=== PATIENT | male | born 1990 | race Hispanic/Latino ===

== ENCOUNTER 2018-10-29 09:29 | Emergency (ER) | payer OTHER, SELFPAY ==
[2018-10-29 09:30] VITALS: BP 132/86; PULSE 64; RESP 20; TEMP 36.6; O2SAT 99
--- NOTE | 2018-10-29 09:52 | ED.UPPEXIN ---
HPI - Extremity Injury (Upper) General Chief Complaint: Extremity Injury, Upper Stated Complaint: Left hand injury at work Time Seen by Provider: 10/29/18 09:52 Source: patient Mode of arrival: ambulatory Limitations: no limitations History of Present Illness HPI narrative: This is a 28-year-old male who comes in with complaint of pain in his right hand particularly his 3rd digit. Patient attempted to wash his hand off with a washer engineer helper. I has what appears to be sort of a puncture wound base of the 3rd finger, he states he has a lot of swelling of that finger. Patient has quite a bit of pain. He states a little bit into the palm. He has pain with movement of the finger particularly flexion. This occurred just prior to arrival. Patient does not know if his tetanus is up-to-date. He denies any other medical issues. He denies any surgeries except for appendectomy. He denies any current medications. He states he quit smoking tobacco, occasional alcohol, denies illicit. Patient states that he was using water without any soap or oils or other products. He denies any other injuries. 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 Related Data Previous Rx's Medication Instructions Recorded cephalexin [Keflex] 500 mg PO QID #40 cap 10/29/18 hydrocodone-acetaminophen [[place]] 1 tab PO Q6H PRN #10 tab 10/29/18 Allergies Allergy/AdvReac Type Severity Reaction Status Date / Time No Known Drug Allergies Allergy Verified 10/29/18 09:39 Review of Systems Review of Systems ROS Unobtainable: All systems reviewed & are unremarkable except as noted in HPI and below Musculoskeletal Reports as per HPI, Reports limited range of motion, Denies numbness, Reports tingling and Reports other (swelling, pain with movement.) Integumentary/Breasts Reports as per HPI, Reports wounds and Reports other ( toño) Neurologic Denies numbness and Reports tingling PFSH Surgical History (Updated 10/29/18 @ 10:07 by Alcira Lott DO) Hx of appendectomy (Chronic) Social History Smoking Status: Current every day smoker Social History Smoking Status: Current every day smoker Exam Narrative Exam Narrative: GENERAL: Alert and oriented x three, well-nourished, well-appearing male in moderate distress. HEENT: Head normocephalic, atraumatic, EOMI, pupils reactive, face symmetric, moist mucous membranes NECK: Supple, full range of motion CARDIOVASCULAR: Regular rate and rhythm without murmurs, rubs or gallops. RESPIRATORY: Breath sounds equal bilaterally, no wheezes rales or rhonchi. ABDOMEN: Soft, nontender. Normoactive bowel sounds all 4 quadrants. No guarding or rebound, rigidity, no mass EXTREMITIES: Patient has swelling of his 3rd finger with what appears to be entrance wound at the base of the 3rd finger on the palmar side of his left hand. No other entry wounds are noted. Patient does not have swelling of his 2nd 3rd 4th or 5th fingers. He is able to slightly flex the finger but is quite uncomfortable and difficult for him to straighten. Patient has mild tenderness in the palm but not a significant within the finger. He does not any tenderness in the other fingers. His cap refill less than 2 seconds in all 4 fingers. He does have sensation to light touch. Patient's finger is warm but is slightly discolored. Patient does have erythema that is non raised with irregular border over the 4th and 5th fingers and onto the palm which patient states is a birthmark. 2+ radial pulse. NEUROLOGICAL: Cranial nerves II through XII grossly intact. Moving all extremities SKIN: Warm, dry, no petechiae, no rashes or lesions. Initial Vital Signs Initial Vital Signs: Vital Signs Temperature 97.8 F 10/29/18 09:30 Pulse Rate 64 10/29/18 09:30 Respiratory Rate 20 10/29/18 09:30 Blood Pressure 132/86 10/29/18 09:30 Pulse Oximetry 99 10/29/18 09:30 Course Orders Ordered: ED Orders 10/29/18 09:52 XR hand LT min 3V Stat 10/29/18 10:10 Complete Blood Count AUTO DIFF Stat Comprehensive Metabolic Panel Stat Discontinued Medications Diphtheria/Tetanus/Acell Pertussis (Adacel) 0.5 ml IM .ONCE ONE Stop: 10/29/18 09:43 Last Admin: 10/29/18 10:31 Dose: 0.5 ml Cefazolin Sodium/Dextrose (Ancef) 2 gm in 100 mls @ 200 mls/hr IV NOW ONE Stop: 10/29/18 10:32 Last Infusion: 10/29/18 11:05 Dose: 0 mls/hr Admin: 10/29/18 10:31 Dose: 200 mls/hr Morphine Sulfate (Morphine) 4 mg IV NOW ONE Stop: 10/29/18 09:59 Last Admin: 10/29/18 10:30 Dose: 4 mg Vital Signs - 8 hr 10/29/18 09:30 10/29/18 12:12 Temperature 97.8 F 98.6 F Pulse Rate 64 53 L Respiratory Rate 20 18 Blood Pressure 132/86 120/78 Pulse Oximetry 99 100 MDM - Extremity Injury (Upper) Lab Data Attestation: I reviewed the patient's lab results. Result diagrams: 10/29/18 10:10 10/29/18 10:10 Lab Results 10/29/18 10/29/18 Range/Units 10:10 10:10 WBC 5.8 (4.5-11.0) X10^3/uL RBC 4.89 (4.5-5.9) X10^6/uL Hgb 15.3 (13.5-17.5) g/dL Hct 44.0 (41-53) % MCV 90.0 (80-100) fL MCH 31.3 (26-34) PG MCHC 34.8 (30-36) % RDW 13.0 (11.6-14.8) % Plt Count 256 (150-400) X10^3/uL Neut % (Auto) 59.6 (50-75) % Lymph % (Auto) 31.1 (25-40) % [place] % (Auto) 7.8 (3-14) % Eos % (Auto) 0.9 L (2-4) % Baso % (Auto) 0.6 (0-2) % Neut # (Auto) 3500 (8296-2062) /uL Lymph # (Auto) 1800 (7215-4241) /uL [place] # (Auto) 500 (0-900) /uL Eos # (Auto) 100 (0-450) /uL Baso # (Auto) 0 (0-100) /uL Sodium 140 (137-145) mmol/L Potassium 4.0 (3.4-5.1) mmol/L Chloride 103 (98-107) mmol/L Carbon Dioxide 27 (22-32) mmol/L BUN 8 L (9-20) mg/dL Creatinine 0.60 L (0.66-1.25) mg/dL Estimated GFR > 60.0 (>60) mL/min BUN/Creatinine Ratio 13.3 (6-22) Glucose 103 H (70-100) mg/dL Calcium 9.7 (8.4-10.2) mg/dL Total Bilirubin 0.9 (0.2-1.3) mg/dL AST 25 (17-59) IU/L ALT 45 (21-72) IU/L Alkaline Phosphatase 61 (38-126) U/L Total Protein 8.4 H (6.3-8.2) g/dL Albumin 5.1 H (3.5-5.0) g/dL Globulin 3.3 (1.7-4.1) g/dL Albumin/Globulin Ratio 1.5 (1.0-2.8) Imaging Data Right hand x-ray: Radiologist's impression: [place] [address] XRay Report Signed Patient: Rufus RasconMR#: [id number] : 1990Acct:[id number] Age/Sex: te of Service: 10/29/18 Loc: ED Accession Number: [id number] Procedure: XR hand LT min 3V Ordering Provider: Alcira Lott D.O. PROCEDURE: XR HAND LT MIN 3V INDICATIONS: high pressure injury TECHNIQUE: 3 views of the hand(s) acquired. COMPARISON: None. FINDINGS: Bones: No fractures or dislocations. Carpal bones are normally aligned. No suspicious bony lesions. Soft tissues: No suspicious soft tissue calcifications. Significant soft tissue swelling and extensive subcutaneous emphysema along the volar aspect of third digit is seen extending to base of fourth and second digits. IMPRESSION: No gross acute left hand fracture or dislocation. Extensive subcutaneous emphysema and soft tissue swelling around third digit extending to base of second and fourth digits. No radiopaque foreign body is seen. Dictated by: Bony Smith M.D. on 10/29/2018 at 9:14 Approved by: Bony Smith M.D. on 10/29/2018 at 9:15 [facility] Narrative Medical decision making narrative: Patient has pressure or sure injury, x-ray does show subcutaneous emphysema and soft tissue swelling around the 3rd digit and extending along the 2nd 4th. Patient was started dose of IV antibiotics given some pain medication. I spoke with Orthopedic surgery and Dr. Jackman. He asked we start patient on oral antibiotics they will be happy to see the patient in the office we did discuss whether he needs to be transferred for hand but he felt that they were comfortable to see him in the office here locally. Patient's tetanus was updated, given strict return precautions. Patient is aware he can return at any time for re-evaluation if he does not get in with ortho in the next 24 hours. Discussed recommendations with patient, we were able to make an appointment at 3:[address] [facility]. He states that he can get to that appointment easier than he can to the one in [place] and works better for him. All questions answered. Discharge Plan Departure Patient Disposition: Home Clinical Impression: High-pressure injection injury of finger of left hand Qualifiers: Encounter type: initial encounter Qualified Code(s): S69.82XA - Other specified injuries of left wrist, hand and finger(s), initial encounter Discharge Date/Time: 10/29/18 12:12 Interventions: ED Discharge Assessment Last Done: 10/29/18 12:12 Activity Restrictions/Additional Instructions: Follow up with Orthopedic surgery tomorrow, you have an appointment at 3:20pm, be there [address] Jackman at [address] [place] [address] in [place], [place]. Take antibiotics until gone. Take pain medication as prescribed. Return to the emergency department for fevers, rapidly worsening pain, loss of sensation in your finger, inability to move your fingers, new weakness or numbness, swelling that is spreading into her other fingers or hand or upper arm, new redness, discharge such as purulent fluid or any other new or concerning and points. Prescriptions: New hydrocodone-acetaminophen [[place]] 5-325 mg tablet 1 tab PO Q6H PRN (Reason: pain) Qty: 10 RF: 0 cephalexin [Keflex] 500 mg capsule 500 mg PO QID Qty: 40 RF: 0 Referrals: Jalen Jackman MD [Physician] -
--- NOTE | 2018-10-29 10:10 | ED_ITS ---
HPI - Extremity Injury (Upper) General Chief Complaint: Extremity Injury, Upper Stated Complaint: Left hand injury at work Time Seen by Provider: 10/29/18 09:52 Source: patient Mode of arrival: ambulatory Limitations: no limitations History of Present Illness HPI narrative: This is a 28-year-old male who comes in with complaint of pain in his right hand particularly his 3rd digit. Patient attempted to wash his hand off with a stator plate washer. I has what appears to be sort of a puncture wound base of the 3rd finger, he states he has a lot of swelling of that finger. Patient has quite a bit of pain. He states a little bit into the palm. He has pain with movement of the finger particularly flexion. This occurred just prior to arrival. Patient does not know if his tetanus is up-to-date. He denies any other medical issues. He denies any surgeries except for appendectomy. He denies any current medications. He states he quit smoking tobacco, occasional alcohol, denies illicit. Patient states that he was using water without any soap or oils or other products. He denies any other injuries. 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 Related Data Previous Rx's Medication Instructions Recorded cephalexin [Keflex] 500 mg PO QID #40 cap 10/29/18 hydrocodone-acetaminophen [[place]] 1 tab PO Q6H PRN #10 tab 10/29/18 Allergies Allergy/AdvReac Type Severity Reaction Status Date / Time No Known Drug Allergies Allergy Verified 10/29/18 09:39 Review of Systems Review of Systems ROS Unobtainable: All systems reviewed & are unremarkable except as noted in HPI and below Musculoskeletal Reports as per HPI, Reports limited range of motion, Denies numbness, Reports tingling and Reports other (swelling, pain with movement.) Integumentary/Breasts Reports as per HPI, Reports wounds and Reports other ( toño) Neurologic Denies numbness and Reports tingling PFSH Surgical History (Updated 10/29/18 @ 10:07 by Alcira Lott DO) Hx of appendectomy (Chronic) Social History Smoking Status: Current every day smoker Social History Smoking Status: Current every day smoker Exam Narrative Exam Narrative: GENERAL: Alert and oriented x three, well-nourished, well- appearing male in moderate distress. HEENT: Head normocephalic, atraumatic, EOMI, pupils reactive, face symmetric, moist mucous membranes NECK: Supple, full range of motion CARDIOVASCULAR: Regular rate and rhythm without murmurs, rubs or gallops. RESPIRATORY: Breath sounds equal bilaterally, no wheezes rales or rhonchi. ABDOMEN: Soft, nontender. Normoactive bowel sounds all 4 quadrants. No guarding or rebound, rigidity, no mass EXTREMITIES: Patient has swelling of his 3rd finger with what appears to be entrance wound at the base of the 3rd finger on the palmar side of his left hand. No other entry wounds are noted. Patient does not have swelling of his 2 nd 3rd 4th or 5th fingers. He is able to slightly flex the finger but is quite uncomfortable and difficult for him to straighten. Patient has mild tenderness in the palm but not a significant within the finger. He does not any tenderness in the other fingers. His cap refill less than 2 seconds in all 4 fingers. He does have sensation to light touch. Patient's finger is warm but is slightly d iscolored. Patient does have erythema that is non raised with irregular border over the 4th and 5th fingers and onto the palm which patient states is a birthmark. 2+ radial pulse. NEUROLOGICAL: Cranial nerves II through XII grossly intact. Moving all extremities SKIN: Warm, dry, no petechiae, no rashes or lesions. Initial Vital Signs Initial Vital Signs: Vital Signs Temperature 97.8 F 10/29/18 09:30 Pulse Rate 64 10/29/18 09:30 Respiratory Rate 20 10/29/18 09:30 Blood Pressure 132/86 10/29/18 09:30 Pulse Oximetry 99 10/29/18 09:30 Course Orders Ordered: ED Orders 10/29/18 09:52 XR hand LT min 3V Stat 10/29/18 10:10 Complete Blood Count AUTO DIFF Stat Comprehensive Metabolic Panel Stat Discontinued Medications Diphtheria/Tetanus/Acell Pertussis (Adacel) 0.5 ml IM .ONCE ONE Stop: 10/29/18 09:43 Last Admin: 10/29/18 10:31 Dose: 0.5 ml Cefazolin Sodium/Dextrose (Ancef) 2 gm in 100 mls @ 200 mls/hr IV NOW ONE Stop: 10/29/18 10:32 Last Infusion: 10/29/18 11:05 Dose: 0 mls/hr Admin: 10/29/18 10:31 Dose: 200 mls/hr Morphine Sulfate (Morphine) 4 mg IV NOW ONE Stop: 10/29/18 09:59 Last Admin: 10/29/18 10:30 Dose: 4 mg Vital Signs - 8 hr 10/29/18 09:30 10/29/18 12:12 Temperature 97.8 F 98.6 F Pulse Rate 64 53 L Respiratory Rate 20 18 Blood Pressure 132/86 120/78 Pulse Oximetry 99 100 MDM - Extremity Injury (Upper) Lab Data Attestation: I reviewed the patient's lab results. Result diagrams: 10/29/18 10:10 10/29/18 10:10 Lab Results 10/29/18 10/29/18 Range/Units 10:10 10:10 WBC 5.8 (4.5-11.0) X10^3/uL RBC 4.89 (4.5-5.9) X10^6/uL Hgb 15.3 (13.5-17.5) g/dL Hct 44.0 (41-53) % MCV 90.0 (80-100) fL MCH 31.3 (26-34) PG MCHC 34.8 (30-36) % RDW 13.0 (11.6-14.8) % Plt Count 256 (150-400) X10^3/uL Neut % (Auto) 59.6 (50-75) % Lymph % (Auto) 31.1 (25-40) % [place] % (Auto) 7.8 (3-14) % Eos % (Auto) 0.9 L (2-4) % Baso % (Auto) 0.6 (0-2) % Neut # (Auto) 3500 (6028-3182) /uL Lymph # (Auto) 1800 (9489-4182) /uL [place] # (Auto) 500 (0-900) /uL Eos # (Auto) 100 (0-450) /uL Baso # (Auto) 0 (0-100) /uL Sodium 140 (137-145) mmol/L Potassium 4.0 (3.4-5.1) mmol/L Chloride 103 (98-107) mmol/L Carbon Dioxide 27 (22-32) mmol/L BUN 8 L (9-20) mg/dL Creatinine 0.60 L (0.66-1.25) mg/dL Estimated GFR > 60.0 (>60) mL/min BUN/Creatinine Ratio 13.3 (6-22) Glucose 103 H (70-100) mg/dL Calcium 9.7 (8.4-10.2) mg/dL Total Bilirubin 0.9 (0.2-1.3) mg/dL AST 25 (17-59) IU/L ALT 45 (21-72) IU/L Alkaline Phosphatase 61 (38-126) U/L Total Protein 8.4 H (6.3-8.2) g/dL Albumin 5.1 H (3.5-5.0) g/dL Globulin 3.3 (1.7-4.1) g/dL Albumin/Globulin Ratio 1.5 (1.0-2.8) Imaging Data Right hand x-ray: Radiologist's impression: [place] [address] XRay Report Signed Patient: Rufus RasconMR#: [id number] : 1990Acct:[id number] Age/Sex: te of Service: 10/29/18 Loc: ED Accession Number: [id number] Procedure: XR hand LT min 3V Ordering Provider: Alcira Lott D.O. PROCEDURE: XR HAND LT MIN 3V INDICATIONS: high pressure injury TECHNIQUE: 3 views of the hand(s) acquired. COMPARISON: None. FINDINGS: Bones: No fractures or dislocations. Carpal bones are normally aligned. No suspicious bony lesions. Soft tissues: No suspicious soft tissue calcifications. Significant soft tissue swelling and extensive subcutaneous emphysema along the volar aspect of third digit is seen extending to base of fourth and second digits. IMPRESSION: No gross acute left hand fracture or dislocation. Extensive subcutaneous emphysema and soft tissue swelling around third digit extending to base of second and fourth digits. No radiopaque foreign body is seen. Dictated by: Bony Smith M.D. on 10/29/2018 at 9:14 Approved by: Bony Smith M.D. on 10/29/2018 at 9:15 [facility] Narrative Medical decision making narrative: Patient has pressure or sure injury, x-ray does show subcutaneous emphysema and soft tissue swelling around the 3rd digit and extending along the 2nd 4th. Patient was started dose of IV antibiotics given some pain medication. I spoke with Orthopedic surgery and Dr. Jackman. He asked we start patient on oral antibiotics they will be happy to see the patient in the office we did discuss whether he needs to be transferred for hand but he felt that they were comfortable to see him in the office here locally. Patient's tetanus was updated, given strict return precautions. Patient is aware he can return at any time for re-evaluation if he does not get in with ortho in the next 24 hours. Discussed recommendations with patient, we were able to make an appointment at 3:20 p.m. on [facility]. He states that he can get to that appointment easier than he can to the one in [place] and works better for him. All questions answered. Discharge Plan Departure Patient Disposition: Home Clinical Impression: High-pressure injection injury of finger of left hand Qualifiers: Encounter type: initial encounter Qualified Code(s): S69.82XA - Other specified injuries of left wrist, hand and finger(s), initial encounter Discharge Date/Time: 10/29/18 12:12 Interventions: ED Discharge Assessment Last Done: 10/29/18 12:12 Activity Restrictions/Additional Instructions: Follow up with Orthopedic surgery tomorrow, you have an appointment at 3:20pm, be there [address] Jackman at [address] [place] [address] in [place], [place]. Take antibiotics until gone. Take pain medication as prescribed. Return to the emergency department for fevers, rapidly worsening pain, loss of sensation in your finger, inability to move your fingers, new weakness or nu mbness, swelling that is spreading into her other fingers or hand or upper arm, new redness, discharge such as purulent fluid or any other new or concerning and points. Prescriptions: New hydrocodone-acetaminophen [[place]] 5-325 mg tablet 1 tab PO Q6H PRN (Reason: pain) Qty: 10 RF: 0 cephalexin [Keflex] 500 mg capsule 500 mg PO QID Qty: 40 RF: 0 Referrals: Jalen Jackman MD [Physician] -
[2018-10-29 10:18] LABS: Add Manual Diff / Slide Review NO; Basophils Absolute Auto 0 /uL (0-100); Basophils Percent Auto 0.6 % (0-2); Eosinophils Absolute Auto 100 /uL (0-450); Eosinophils Percent Auto 0.9 % (2-4); Hemoglobin 15.3 g/dL (13.5-17.5); Lymphocytes Absolute Auto 1800 /uL (1100-4500); Lymphocytes Percent Auto 31.1 % (25-40); Mean Corpuscular HGB Conc 34.8 % (30-36); Mean Corpuscular Hemoglobin 31.3 PG (26-34); Monocytes Absolute Auto 500 /uL (0-900); Monocytes Percent Auto 7.8 % (3-14); Neutrophils Absolute Auto 3500 /uL (1500-7000); Neutrophils Percent Auto 59.6 % (50-75); Platelet Count 256 X10^3/uL (150-400); Red Blood Cell Count 4.89 X10^6/uL (4.5-5.9); White Blood Cell Count 5.8 X10^3/uL (4.5-11.0)
[2018-10-29] MEDS: MORPHINE 4 MG/ML INJ IV (10:30)
[2018-10-29] MEDS: CEFAZOLIN 2 GM/100 ML FROZ.PIGGY IV (10:31)
[2018-10-29] MEDS: TET,DIPH,PERTUSS(ACELL),VAC/PF 0.5 ML SYRINGE IM (10:31)
[2018-10-29 10:33] LABS: Alanine Aminotransferase 45 IU/L (21-72); Albumin 5.1 g/dL (3.5-5.0); Albumin Globulin Ratio 1.5 (1.0-2.8); Alkaline Phosphatase 61 U/L (38-126); Aspartate Aminotransferase 25 IU/L (17-59); BUN Creatinine Ratio 13.3 (6-22); Bilirubin Total 0.9 mg/dL (0.2-1.3); Blood Urea Nitrogen 8 mg/dL (9-20); Calcium 9.7 mg/dL (8.4-10.2); Carbon Dioxide 27 mmol/L (22-32); Chloride 103 mmol/L (98-107); Estimated Glomerular Filt Rate > 60.0 mL/min (>60); Globulin 3.3 g/dL (1.7-4.1); Glucose 103 mg/dL (70-100); HEMOLYSIS < 15 (0-50); Sodium 140 mmol/L (137-145); Total Protein 8.4 g/dL (6.3-8.2)
[2018-10-29 12:12] VITALS: BP 120/78; PULSE 53; RESP 18; TEMP 37; O2SAT 100
== END 2018-10-29 12:12 | disposition home or self-care (01) ==
PROVIDERS: Emergency Provider Emergency Medicine
DX: S69.82XA Other specified injuries of left wrist, hand and finger(s), initial encounter (principal); W29.8XXA Contact with other powered hand tools and household machinery, initial encounter; Y99.0 Civilian activity done for income or pay; Z23 Encounter for immunization
CPT/HCPCS: 36591; 73130; 80053; 85025; 90471; 96365; 96375; 99283; 99284; 90715; J0690; J2270